=== PATIENT | male | born 1945 | race Caucasian/White ===

== ENCOUNTER 2017-06-23 17:41 | Observation (INO) | payer MEDICARE, BC ==
[~2017-06-23] VITALS: Ht 172.7 cm; Wt 118.3 kg
[2017-06-23 17:45] VITALS: BP 122/88; PULSE 78; RESP 18; TEMP 98.9; O2SAT 89
[2017-06-23 18:06] VITALS: O2SAT 91
[2017-06-23] MEDS ORDERED: SODIUM CHLORIDE 0.9% FLUSH 10 ML FLUSH IVF PRN (18:30)
--- NOTE | 2017-06-23 18:31 | PD ---
HPI Chief Complaint: Cold / Flu Symptoms Time Seen by Provider: 18:11 Travel History International Travel<30 days: No Contact w/Intl Traveler<30days: No Traveled to known affect area: No History of Present Illness HPI 71-year-old male pleasant well-nourished well-developed arrives with cough and fever for about 2 days. He reports one friend with a cough who has been accompanying him and his friends from [place]. Patient reports some soreness in the chest in association with coughing. He reports compliance to Lasix and dietary guidelines and no change in urination lower extremity swelling. A subjective fever is reported as well as a measured fever as high as 102.0. PFSH Past Medical History Cardiovascular Problems: Yes Respiratory: Yes Social History Tobacco Use: Yes Allergies-Medications (Allergen,Severity, Reaction): Coded Allergies: No Known Allergies (Verified Allergy, Unknown, 06/18/03) Review of Systems Except as stated in HPI: all other systems reviewed are Neg Physical Exam Narrative GENERAL: 71-year-old male pleasant well-nourished well-developed Vital Signs Date Time Temp Pulse Resp B/P (MAP) Pulse Ox O2 Delivery O2 Flow Rate FiO2 06/23/17 18:06 91 Nasal Cannula 2.00 06/23/17 17:45 98.9 78 18 122/88 (99) 89 SKIN: Warm and dry. HEAD: Atraumatic. Normocephalic. EYES: Pupils equal and round. No scleral icterus. No injection or drainage. ENT: No nasal bleeding or discharge. Mucous membranes pink and moist. NECK: Trachea midline. No JVD. CARDIOVASCULAR: Regular rhythm. Rate is 78. RESPIRATORY: No significant dyspnea or tachypnea. GASTROINTESTINAL: Abdomen soft, non-tender, nondistended. Hepatic and splenic margins not palpable. MUSCULOSKELETAL: Minimal edema bilateral lower extremities. No asymmetry or induration. NEUROLOGICAL: Awake and alert. No obvious cranial nerve deficits. Motor grossly within normal limits. Five out of 5 muscle strength in the arms and legs. Normal speech. PSYCHIATRIC: Appropriate mood and affect; insight and judgment normal. Data Data Last Documented VS Vital Signs Date Time Temp Pulse Resp B/P (MAP) Pulse Ox O2 Delivery O2 Flow Rate FiO2 06/23/17 18:06 91 Nasal Cannula 2.00 06/23/17 17:45 98.9 78 18 Orders Orders Complete Blood Count With Diff (06/23/17 18:25) Basic Metabolic Panel (Bmp) (06/23/17 18:25) B-Type Natriuretic Peptide (06/23/17 18:25) Iv Access Insert/Monitor (06/23/17 18:25) Electrocardiogram (06/23/17 18:25) Ecg Monitoring (06/23/17 18:25) Oximetry (06/23/17 18:25) Oxygen Administration (06/23/17 18:25) Sodium Chloride 0.9% Flush (Ns Flush) (06/23/17 18:30) Influenzae A/B Antigen (06/23/17 18:25) MDM Medical Decision Making Medical Screen Exam Complete: Yes Emergency Medical Condition: Yes Medical Record Reviewed: Yes Differential Diagnosis Influenza, pneumonia, CHF exacerbation, COPD exacerbation Narrative Course Workup initiated. The patient will be signed out to the oncoming provider at 7 PM with plan to follow-up evaluation and disposition appropriately. Jg Mauro MD Jun 23, 2017 18:30
[2017-06-23 18:36] VITALS: O2SAT 94
[2017-06-23] MEDS ORDERED: OSELTAMIVIR PHOSPHATE 75 MG CAP PO ONE (18:45)
[2017-06-23 19:03] LABS: AUTOMATED NEUTROPHIL # 4.1 TH/MM3 (1.8-7.7); BASOPHIL % 0.6 % (0.0-2.0); EOSINOPHIL # 0.1 TH/MM3 (0-0.4); EOSINOPHIL % 1.1 % (0.0-4.0); HEMATOCRIT 38.7 % (39.0-51.0); HEMOGLOBIN 13.2 GM/DL (13.0-17.0); LYMPH % 8.5 % (9.0-44.0); LYMPHOCYTE # 0.5 TH/MM3 (1.0-4.8); MEAN CELL VOLUME 87.6 FL (80.0-100.0); MEAN CORPUSCULAR HEMOGLOBIN 29.9 PG (27.0-34.0); MEAN CORPUSCULAR HGB CONC 34.1 % (32.0-36.0); MONO % 16.1 % (0.0-8.0); MONOCYTE # 0.9 TH/MM3 (0-0.9); NEUT % 73.7 % (16.0-70.0); PLATELET COUNT 190 TH/MM3 (150-450); RED BLOOD COUNT 4.42 MIL/MM3 (4.50-5.90); RED CELL DISTRIBUTION WIDTH 14.6 % (11.6-17.2); WHITE BLOOD COUNT 5.6 TH/MM3 (4.0-11.0)
--- NOTE | 2017-06-23 19:12 | PD ---
Data Data Last Documented VS Vital Signs Date Time Temp Pulse Resp B/P (MAP) Pulse Ox O2 Delivery O2 Flow Rate FiO2 06/23/17 20:05 72 20 189/84 (119) 93 Nasal Cannula 2.00 06/23/17 17:45 98.9 Orders Orders Complete Blood Count With Diff (06/23/17 18:25) Basic Metabolic Panel (Bmp) (06/23/17 18:25) B-Type Natriuretic Peptide (06/23/17 18:25) Iv Access Insert/Monitor (06/23/17 18:25) Electrocardiogram (06/23/17 18:25) Ecg Monitoring (06/23/17 18:25) Oximetry (06/23/17 18:25) Oxygen Administration (06/23/17 18:25) Sodium Chloride 0.9% Flush (Ns Flush) (06/23/17 18:30) Influenzae A/B Antigen (06/23/17 18:25) Oseltamivir (Tamiflu) (06/23/17 18:45) Chest, Single Ap (06/23/17 19:12) Potassium Chloride Eff (K-Lyte Cl Eff) (06/23/17 20:30) Creatine Kinase (Cpk) (06/23/17 20:36) Ckmb (Isoenzyme) Profile (06/23/17 20:36) Troponin I (06/23/17 20:36) Aspirin Chew (Aspirin Chew) (06/23/17 20:45) Nitroglycerin 2% Oint (Nitroglycerin 2% (06/23/17 20:45) Furosemide Inj (Lasix Inj) (06/23/17 20:45) Admit Order (Ed Use Only) (06/23/17 20:36) CKMB (06/23/17 22:10) CKMB% (06/23/17 22:10) Labs Laboratory Tests Test 06/23/17 18:47 White Blood Count 5.6 TH/MM3 Red Blood Count 4.42 MIL/MM3 Hemoglobin 13.2 GM/DL Hematocrit 38.7 % Mean Corpuscular Volume 87.6 FL Mean Corpuscular Hemoglobin 29.9 PG Mean Corpuscular Hemoglobin Concent 34.1 % Red Cell Distribution Width 14.6 % Platelet Count 190 TH/MM3 Mean Platelet Volume 8.0 FL Neutrophils (%) (Auto) 73.7 % Lymphocytes (%) (Auto) 8.5 % Monocytes (%) (Auto) 16.1 % Eosinophils (%) (Auto) 1.1 % Basophils (%) (Auto) 0.6 % Neutrophils # (Auto) 4.1 TH/MM3 Lymphocytes # (Auto) 0.5 TH/MM3 Monocytes # (Auto) 0.9 TH/MM3 Eosinophils # (Auto) 0.1 TH/MM3 Basophils # (Auto) 0.0 TH/MM3 CBC Comment DIFF FINAL Differential Comment Blood Urea Nitrogen 19 MG/DL Creatinine 1.32 MG/DL Random Glucose 178 MG/DL Calcium Level 8.1 MG/DL Sodium Level 139 MEQ/L Potassium Level 2.8 MEQ/L Chloride Level 103 MEQ/L Carbon Dioxide Level 28.6 MEQ/L Anion Gap 7 MEQ/L Estimat Glomerular Filtration Rate 54 ML/MIN B-Type Natriuretic Peptide 151 PG/ML [facility] Medical Record Reviewed: Yes Supervised Visit with CASPER: No Interpretation(s) Last Impressions Chest X-Ray 06/23/171911 Signed Impressions: Service Date/Time: Friday, June 23, 2017 19:25 - CONCLUSION: 1. Small bilateral pleural effusions with likely associated compressive atelectasis. 2. Cardiac silhouette size is at the upper limits for normal. Chauncey Sloan MD Narrative Course During the course of the patient's emergency department visit, the patient's history, examination, and differential diagnosis were reviewed with the patient. The patient was placed on a property assessment monitor with oximetry and frequent blood pressure monitoring. The patient had IV access obtained and blood work sent for analysis. The patient's case was checked out to me by Dr. Mauro. Please see his complete history and physical. The patient's case was checked out to me at the conclusion of his shift. The patient's initial O2 saturation on room air is 89%. The patient was placed on 2 L nasal cannula O2 and he is now saturating 94%. The patient was initially provided Tamiflu [address] mg [address] Mauro. The patient's laboratory studies were reviewed and remarkable for a white count of 5.6, hemoglobin 13.2, platelets 190 with 73.7 neutrophils, lymphocytes 8.5, monocytes 16.1, basic metabolic profile is remarkable for a potassium of 2.8 which was supplemented orally, BUN 19, creatinine 1.32, glucose 178, calcium 8.1 , BNP is 151, cardiac enzymes within normal limits Radiology studies were reviewed and remarkable for a chest x-ray that shows small bilateral pleural effusions with likely associated compressive atelectasis , cardiac silhouette size at the upper limits of normal. The patient was given Lasix 40 mg IV, aspirin 324 mg p.o. 1, nitroglycerin 1 inch the chest wall. The patient will be admitted to the hospital for diuresis. The patient reports that he does have a history of congestive heart failure. He reports that in April his Lasix was increased from 40-80 mg in the morning. The patient's results were discussed with the patient, including the plan of care. I explained that further testing and/ or monitoring is indicated based on the patient's history, examination, and/ or laboratory findings. Therefore, I recommended admission for additional evaluation. The patient expressed understanding and was agreeable with this plan. The patient was admitted to the hospital in stable condition and sent to a bed under the care of the [facility]. Physician Communication Physician Communication The patient's case including history, pertinent physical examination findings, and laboratory studies were discussed with Dr. Llamas. It was agreed that the patient would be admitted to the [facility] service. Diagnosis Primary Impression: Hypoxemia Additional Impressions: Acute exacerbation of congestive heart failure Qualified Codes: I50.9 - Heart failure, unspecified Fever Qualified Codes: R50.9 - Fever, unspecified Admitting Information Admitting Physician Requests: Tiara Hall MD Jun 23, 2017 19:12
[2017-06-23 19:27] LABS: BICARBONATE 28.6 MEQ/L (21.0-32.0); CALCIUM 8.1 MG/DL (8.5-10.1); CREATININE 1.32 MG/DL (0.60-1.30)
--- NOTE | 2017-06-23 19:40 | RADRPT ---
EXAM DATE/TIME: 06/23/2017 19:25 [facility] COMPARISON: No previous studies available for comparison. INDICATIONS : Short of breath. MEDICAL HISTORY : None. SURGICAL HISTORY : None. ENCOUNTER: Initial ACUITY: 1 day PAIN SCORE: 0/10 LOCATION: Bilateral chest FINDINGS: Portable AP view the chest demonstrates cardiac silhouette size is at the upper limits for normal. Th ere is calcification of the aorta. EKG lines overlie the patient. There is blunting of the costophren ic sulci bilaterally. No pneumothorax is identified. The bones and soft tissues demonstrate no acute finding. CONCLUSION: 1. Small bilateral pleural effusions with likely associated compressive atelectasis. 2. Cardiac silhouette size is at the upper limits for normal. Chauncey Sloan MD on June 23, 2017 at 19:37 Board Certified Radiologist. This report was verified electronically.
[2017-06-23 20:05] VITALS: BP 189/84; PULSE 72; RESP 20; O2SAT 93
[2017-06-23] MEDS ORDERED: POTASSIUM CHLORIDE 25 MEQ EFFERVESCENT TAB PO ONE (20:30)
[2017-06-23] MEDS ORDERED: ASPIRIN 81 MG CHEW TAB CHEW ONE (20:45)
[2017-06-23] MEDS ORDERED: NITROGLYCERIN 2% OINT 1 GM PACKET TOPICAL ONE (20:45)
[2017-06-23] MEDS ORDERED: FUROSEMIDE 40 MG/4 ML VIAL IV PUSH ONE (20:45)
[2017-06-23] MEDS ORDERED: LISI40TA PO (20:50)
[2017-06-23] MEDS ORDERED: ASPI81TA81 (20:51)
[2017-06-23] MEDS ORDERED: DILT-14 PO (20:51)
[2017-06-23] MEDS ORDERED: KLOR20TA3 PO (20:51)
[2017-06-23] MEDS ORDERED: CLON0.1T PO ×2 (20:52→20:56)
[2017-06-23] MEDS ORDERED: PROT40TA PO (20:52)
[2017-06-23] MEDS ORDERED: METO100T PO (20:52)
[2017-06-23] MEDS ORDERED: CITA20TA4 PO (20:53)
[2017-06-23] MEDS ORDERED: GLIM1TAB PO (20:53)
[2017-06-23] MEDS ORDERED: METO-338 PO (20:57)
[2017-06-23] MEDS ORDERED: FURO1TAB61 PO (20:57)
[2017-06-23] MEDS ORDERED: ONDANSETRON HCL 4 MG/2 ML VIAL IVP PRN (21:30)
[2017-06-23] MEDS ORDERED: NALOXONE HCL 0.4 MG/ML AMP IV PUSH PRN (21:30)
[2017-06-23] MEDS ORDERED: LORazepam 2 MG TAB PO PRN (21:30)
[2017-06-23] MEDS ORDERED: MAGNESIUM HYDROXIDE SUSP 30 ML CUP PO PRN (21:30)
[2017-06-23] MEDS ORDERED: FLUMAZENIL 0.5 MG/5 ML VIAL IV PUSH PRN (21:30)
[2017-06-23] MEDS ORDERED: LORazepam 1 MG TAB PO PRN (21:30)
[2017-06-23] MEDS ORDERED: ACETAMINOPHEN 325 MG TAB PO PRN (21:30)
[2017-06-23] MEDS ORDERED: BISACODYL 10 MG SUPP RECTAL PRN (21:30)
[2017-06-23] MEDS ORDERED: LACTULOSE SYRUP 20 GM/30 ML CUP PO PRN (21:30)
[2017-06-23] MEDS ORDERED: LORazepam 2 MG/ML VIAL IV PUSH PRN ×4 (21:30)
[2017-06-23] MEDS ORDERED: SENNOSIDES 8.6 MG TAB PO PRN (21:30)
--- NOTE | 2017-06-23 22:03 | HHI.HP ---
HPI Service [facility] Primary Care Physician Non-Staff Admission Diagnosis New onset CHF, hypokalemia, pleural effusions Diagnoses: Travel History International Travel<30 Days: No Contact w/Intl Traveler <30 Da: No Traveled to Known Affected Are: No History of Present Illness 71-year-old male with a past medical history significant for CHF (no recent echo for comparison), COPD, hypertension, hyperlipidemia and TABITHA presents to the emergency department for evaluation of a fever and fatigue. The patient reports starting Saturday evening he felt lightheaded with increasing shortness of breath and a dry cough. He endorses pleuritic chest pain that is worse with coughing. He states his shortness of breath is unchanged with activity. He has bilateral lower extremity edema which is baseline. He was febrile at home to 102. Vital signs on admission: Temperature 98.9, pulse 78, respirations 18, BP 122/88, pulse ox 89% on room air. Review of Systems Except as stated in HPI: all other systems reviewed are Neg Denies fever or chills Denies blurry vision, otorrhea, rhinorrhea Denies sore throat, positive cough No chest pain, palpitations Positive shortness of breath No abdominal pain Denies constipation/diarrhea/nausea/vomiting Denies muscle pain Denies focal weakness No rashes Past Family Social History Past Medical History CHF COPD Hypertension Hyperlipidemia TABITHA Past Surgical History Bilateral knee replacements Bilateral carpal tunnel release Inguinal hernia repair Reported Medications Reported Meds & Active Scripts Active Reported Lopressor (Metoprolol Tartrate) 100 Mg Tab 100 Mg PO BID Lasix (Furosemide) 80 Mg Tab 80 Mg PO BID Clonidine (Clonidine HCl) 0.1 Mg Tab 0.1 Mg PO BID Citalopram (Citalopram Hydrobromide) 20 Mg Tab 20 Mg PO DAILY Glimepiride 1 Mg Tab 1 Mg PO DAILY Take with breakfast or first main meal Protonix (Pantoprazole Sodium) 40 Mg Tab 40 Mg PO DAILY Klor-Con M20 (Potassium Chloride Microencaps) 20 Meq Tab 20 Meq PO DAILY Tiazac (Diltiazem ER 24 HR) 420 Mg Caper 420 Mg PO DAILY Aspir-81 (Aspirin) 81 Mg Tabdr Lisinopril 40 Mg Tab 40 Mg PO DAILY Allergies: Coded Allergies: No Known Allergies (Verified Allergy, Unknown, 06/23/17) Family History Negative for CAD/DM Social History Denies tobacco. Drinks approximately 5-6 beers daily to weekly. Denies illicit drugs. Physical Exam Vital Signs Vital Signs Date Time Temp Pulse Resp B/P (MAP) Pulse Ox O2 Delivery O2 Flow Rate FiO2 06/23/17 20:05 72 20 189/84 (119) 93 Nasal Cannula 2.00 06/23/17 18:36 94 Nasal Cannula 2.00 06/23/17 18:36 94 Nasal Cannula 2.00 06/23/17 18:06 91 Nasal Cannula 2.00 06/23/17 17:45 98.9 78 18 122/88 (99) 89 Physical Exam GENERAL: Obese, male sitting up in a chair SKIN: No rashes, ecchymoses or lesions. Cool and dry. HEAD: Atraumatic. Normocephalic. No temporal or scalp tenderness. EYES: Pupils equal round and reactive. Extraocular motions intact. No scleral icterus. No injection or drainage. ENT: Nose without bleeding, purulent drainage or septal hematoma. Throat without erythema, tonsillar hypertrophy or exudate. Uvula midline. Airway patent. NECK: Trachea midline. No JVD or lymphadenopathy. Supple, nontender, no meningeal signs. CARDIOVASCULAR: Regular rate and rhythm without murmurs, gallops, or rubs. RESPIRATORY: Bilateral crackles in the bases. GASTROINTESTINAL: Abdomen soft, non-tender, nondistended. No hepato-splenomegaly , or palpable masses. No guarding. MUSCULOSKELETAL: Extremities without clubbing, cyanosis, or edema. No joint tenderness, effusion, or edema noted. No calf tenderness. NEUROLOGICAL: Awake and alert. Cranial nerves II through XII intact. Motor and sensory grossly within normal limits. Normal speech. Laboratory Laboratory Tests Test 06/23/17 18:47 White Blood Count 5.6 Red Blood Count 4.42 Hemoglobin 13.2 Hematocrit 38.7 Mean Corpuscular Volume 87.6 Mean Corpuscular Hemoglobin 29.9 Mean Corpuscular Hemoglobin Concent 34.1 Red Cell Distribution Width 14.6 Platelet Count 190 Mean Platelet Volume 8.0 Neutrophils (%) (Auto) 73.7 Lymphocytes (%) (Auto) 8.5 Monocytes (%) (Auto) 16.1 Eosinophils (%) (Auto) 1.1 Basophils (%) (Auto) 0.6 Neutrophils # (Auto) 4.1 Lymphocytes # (Auto) 0.5 Monocytes # (Auto) 0.9 Eosinophils # (Auto) 0.1 Basophils # (Auto) 0.0 CBC Comment DIFF FINAL Differential Comment Blood Urea Nitrogen 19 Creatinine 1.32 Random Glucose 178 Calcium Level 8.1 Sodium Level 139 Potassium Level 2.8 Chloride Level 103 Carbon Dioxide Level 28.6 Anion Gap 7 Estimat Glomerular Filtration Rate 54 B-Type Natriuretic Peptide 151 Date/Time Source Procedure Growth Status 06/23/17 18:50 Nasal Aspirate Influenza Types A,B Antigen (JASON) - Final NEGATIVE FOR FLU A AND B ANTIGEN.... Complete Result Diagram: 06/23/17184606/23/171846 Caprini VTE Risk Assessment Caprini VTE Risk Assessment: Mod/High Risk (score >= 2) Caprini Risk Assessment Model Point Value = 1 Point Value = 2 Point Value = 3 Point Value = 5 Age 41-60 Minor surgery BMI > 25 kg/m2 Swollen legs Varicose veins or History of unexplained or recurrent spontaneous Oral contraceptives or hormone replacement Sepsis (< 1 month) Serious lung disease, including pneumonia (< 1 month) Abnormal pulmonary function Acute myocardial infarction Congestive heart failure (< 1 month) History of inflammatory bowel disease Medical patient at bed rest Age 61-74 Arthroscopic surgery Major open surgery (> 45 min) Laparoscopic surgery (> 45 min) Malignancy Confined to bed (> 72 hours) Immobilizing plaster cast Central venous access Age >= 75 History of VTE Family history of VTE Factor V Leiden Prothrombin [id number] Lupus anticoagulant Anticardiolipin antibodies Elevated serum homocysteine Heparin-induced thrombocytopenia Other congenital or acquired thrombophilia Stroke (< 1 month) Elective arthroplasty Hip, pelvis, or leg fracture Acute spinal cord injury (< 1 month) Prophylaxis Regimen Total Risk Factor Score Risk Level Prophylaxis Regimen 0-1 Low Early ambulation 2 Moderate Order ONE of the following: *Sequential Compression Device (SCD) *Heparin 5000 units SQ BID 3-4 Higher Order ONE of the following medications: *Heparin 5000 units SQ TID *Enoxaparin/Lovenox 40 mg SQ daily (WT < 150 kg, CrCl > 30 mL/min) *Enoxaparin/Lovenox 30 mg SQ daily (WT < 150 kg, CrCl > 10-29 mL/min) *Enoxaparin/Lovenox 30 mg SQ BID (WT < 150 kg, CrCl > 30 mL/min) AND/OR *Sequential Compression Device (SCD) 5 or more Highest Order ONE of the following medications: *Heparin 5000 units SQ TID (Preferred with Epidurals) *Enoxaparin/Lovenox 40 mg SQ daily (WT < 150 kg, CrCl > 30 mL/min) *Enoxaparin/Lovenox 30 mg SQ daily (WT < 150 kg, CrCl > 10-29 mL/min) *Enoxaparin/Lovenox 30 mg SQ BID (WT < 150 kg, CrCl > 30 mL/min) AND *Sequential Compression Device (SCD) Assessment and Plan Assessment and Plan Assessment/plan: 1. CHF exacerbation ACS rule out pending Chest x-ray significant for small bilateral pleural effusions IV Lasix 2. Viral syndrome Influenza negative however patient started on Tamiflu in the emergency department Continue Tamiflu Supportive care 3. CHF/hypertension/hyperlipidemia Continue home medications 4. COPD/TABITHA Continue home medications Continue home CPAP 5. Hypokalemia Status post repletion in the emergency department Follow-up BMP FEN Heart healthy diet Electrolytes: Monitor and replete when necessary Heparin Kim Llamas MD Jun 23, 2017 22:03
[2017-06-23 22:04] VITALS: BP 182/90; PULSE 73; RESP 16
[2017-06-23] MEDS ORDERED: DILTIAZEM-CD 120 MG CAP ER PO ONE (22:30)
[2017-06-23] MEDS ORDERED: METOPROLOL TARTRATE 100 MG TAB PO ONE (22:30)
[2017-06-23] MEDS ORDERED: cloNIDine HCL 0.1 MG TAB PO ONE (22:30)
[2017-06-23] MEDS ORDERED: HYDR-3801 PO (22:30)
[2017-06-23] MEDS ORDERED: DILTIAZEM-CD 300 MG CAP ER PO ONE (22:30)
[2017-06-23] MEDS ORDERED: ADVA250A INH (22:31)
[2017-06-23] MEDS ORDERED: SPIRCAP INH (22:31)
[2017-06-23 22:53] LABS: TROPONIN I 0.03 NG/ML (0.02-0.05)
[2017-06-23] MEDS: HEPARIN SODIUM - SQ 10,000 UNITS/ML VIAL SQ SCH (23:07)
[2017-06-23 23:15] VITALS: BP 165/81; PULSE 74; RESP 16; O2SAT 98
[2017-06-24] VITALS (9 sets, daily range): BP systolic 134–184; BP diastolic 75–98; PULSE 60–68; RESP 16–20; TEMP 98–99.4; O2SAT 93–99
[2017-06-24] MEDS ORDERED: DILTIAZEM-CD 300 MG CAP ER PO SCH (09:00)
[2017-06-24] MEDS ORDERED: OSELTAMIVIR PHOSPHATE 75 MG CAP PO SCH (09:00)
[2017-06-24] MEDS ORDERED: DILTIAZEM-CD 120 MG CAP ER PO SCH (09:00)
[2017-06-24] MEDS: BUDESONIDE-FORMOTEROL 160/4.5 MCG INHALER INH SCH ×2 (09:19→22:15)
[2017-06-24] MEDS: FUROSEMIDE 40 MG/4 ML VIAL IV PUSH SCH ×2 (09:21→18:22)
[2017-06-24] MEDS: METOPROLOL TARTRATE 100 MG TAB PO SCH ×2 (09:21→22:14)
[2017-06-24] MEDS: DOCUSATE SODIUM 50 MG/SENNA 8.6 MG TAB PO SCH ×2 (09:21→22:15)
[2017-06-24] MEDS: PANTOPRAZOLE SOD 40 MG DELAYED RELEASE TAB PO SCH (09:22)
[2017-06-24] MEDS: CITALOPRAM HYDROBROMIDE 20 MG TAB PO SCH (09:22)
[2017-06-24] MEDS: LISINOPRIL 20 MG TAB PO SCH (09:22)
[2017-06-24] MEDS: POTASSIUM CHLORIDE 20 MEQ CONTROLLED RELEASE TAB PO SCH (09:22)
[2017-06-24] MEDS: hydrALAZINE HCL 100 MG TAB PO SCH ×2 (09:23→22:15)
[2017-06-24] MEDS: cloNIDine HCL 0.1 MG TAB PO SCH ×2 (09:23→22:14)
[2017-06-24] MEDS: SODIUM CHLORIDE 0.9% FLUSH 10 ML FLUSH IV FLUSH SCH ×2 (09:23→22:13)
[2017-06-24] MEDS: HEPARIN SODIUM - SQ 10,000 UNITS/ML VIAL SQ SCH ×3 (09:29→22:15)
[2017-06-24 12:16] LABS: HEMOGLOBIN 14.1 GM/DL (13.0-17.0); MEAN CELL VOLUME 88.4 FL (80.0-100.0); MEAN CORPUSCULAR HEMOGLOBIN 30.4 PG (27.0-34.0); MEAN CORPUSCULAR HGB CONC 34.4 % (32.0-36.0); MEAN PLATELET VOLUME 8.2 FL (7.0-11.0); PLATELET COUNT 202 TH/MM3 (150-450); RED BLOOD COUNT 4.63 MIL/MM3 (4.50-5.90); RED CELL DISTRIBUTION WIDTH 14.7 % (11.6-17.2); WHITE BLOOD COUNT 4.8 TH/MM3 (4.0-11.0)
[2017-06-24 12:17] LABS: AUTOMATED NEUTROPHIL # 3.2 TH/MM3 (1.8-7.7); BASOPHIL % 0.4 % (0.0-2.0); EOSINOPHIL # 0.1 TH/MM3 (0-0.4); EOSINOPHIL % 1.5 % (0.0-4.0); LYMPH % 13.7 % (9.0-44.0); LYMPHOCYTE # 0.7 TH/MM3 (1.0-4.8); MONO % 16.9 % (0.0-8.0); MONOCYTE # 0.8 TH/MM3 (0-0.9); NEUT % 67.5 % (16.0-70.0)
[2017-06-24 12:38] LABS: CALCIUM 8.3 MG/DL (8.5-10.1); CREATININE 1.14 MG/DL (0.60-1.30)
[2017-06-24 12:43] LABS: TROPONIN I 0.04 NG/ML (0.02-0.05)
--- NOTE | 2017-06-24 13:09 | HHI.PR ---
Subjective Remarks Patient reports that there is breath, as well as dry cough continues. Denies any nausea or vomiting. Denies chest pain. Recent plane flight 1 week ago, planned plane flight in 2 days Objective Vital Signs Date Time Temp Pulse Resp B/P (MAP) Pulse Ox O2 Delivery O2 Flow Rate FiO2 06/24/17 12:48 98.8 60 18 141/75 (97) 93 06/24/17 08:23 99.2 66 18 170/84 (112) 93 06/24/17 05:59 95 Nasal Cannula 2.00 06/24/17 05:31 96 40 06/24/17 04:49 99.4 63 20 154/75 (101) 94 06/24/17 03:20 99 40 06/24/17 00:14 98.5 68 20 134/94 (107) 93 06/23/17 23:58 06/23/17 23:15 74 16 165/81 (109) 98 Nasal Cannula 2.00 06/23/17 22:04 73 16 182/90 (120) 06/23/17 20:05 72 20 189/84 (119) 93 Nasal Cannula 2.00 06/23/17 18:36 94 Nasal Cannula 2.00 06/23/17 18:36 94 Nasal Cannula 2.00 06/23/17 18:06 91 Nasal Cannula 2.00 06/23/17 17:45 98.9 78 18 122/88 (99) 89 Result Diagram: 06/24/17 1135 06/24/17 1135 Objective Remarks GENERAL: Patient sitting up in bed. Appears comfortable. SKIN: Warm and dry. HEAD: Normocephalic. EYES: No scleral icterus. No injection or drainage. NECK: Supple, trachea midline. difficult due to body habitus CARDIOVASCULAR: Regular rate and rhythm without murmurs, gallops, or rubs. RESPIRATORY: Breath sounds equal bilaterally. No accessory muscle use. GASTROINTESTINAL: Abdomen soft, non-tender, nondistended. MUSCULOSKELETAL: No cyanosis. BACK: Nontender without obvious deformity. No CVA tenderness. A/P Assessment and Plan // CHF exacerbation ACS rule out pending Chest x-ray significant for small bilateral pleural effusions IV Lasix = Continue IV Lasix. Check echocardiogram. Consult cardiology. Strict intake and output monitoring check CT pulmonary angiogram due to recent plane flight. //Viral syndrome Influenza negative however patient started on Tamiflu in the emergency department Continue Tamiflu Supportive care // CHF/hypertension/hyperlipidemia Continue home medications // COPD/TABITHA Continue home medications Continue home CPAP = We will also treat for COPD exacerbation with IV steroids // Hypokalemia Status post repletion in the emergency department Follow-up BMP = Potassium 2.9. Replace. Continue to monitor. FEN Heart healthy diet Electrolytes: Monitor and replete when necessary Heparin Discharge Planning Pending improvement Eb Gonzales MD Jun 24, 2017 13:09
[2017-06-24] MEDS ORDERED: RESP: IPRATROPIUM 0.5 MG/2.5 ML NEB NEB PRN (13:15)
[2017-06-24] MEDS ORDERED: IOHEXOL 350 MG/ML 10 ML VIAL (for RAD DIAG) IVCONTRAST ONE (13:22)
[2017-06-24] MEDS ORDERED: POTASSIUM CHLORIDE 20 MEQ CONTROLLED RELEASE TAB PO ONE (13:30)
[2017-06-24] MEDS ORDERED: methylPREDNISolone SOD SUCC 125 MG/2 ML VIAL IV PUSH ONE (13:30)
--- NOTE | 2017-06-24 13:51 | RADRPT ---
EXAM DATE/TIME: 06/24/2017 13:12 [facility] COMPARISON: No previous studies available for comparison. INDICATIONS : Shortness of breath, evaluate for embolism IV CONTRAST: 70 cc Omnipaque 350 (iohexol) IV RADIATION DOSE: 23.21 CTDIvol (mGy) MEDICAL HISTORY : Cardiovascular disease. Hypertension. Chronic obstructive pulmonary disease. SURGICAL HISTORY : None. ENCOUNTER: Initial ACUITY: 1 day PAIN SCALE: 5/10 LOCATION: Bilateral chest TECHNIQUE: Volumetric scanning of the chest was performed using a pulmonary embolism protocol MIP images were re constructed. Using automated exposure control and adjustment of the mA and/or kV according to patien t size, radiation dose was kept as low as reasonably achievable to obtain optimal diagnostic quality images. DICOM format image data is available electronically for review and comparison. Follow-up recommendations for detected pulmonary nodules are based at a minimum on nodule size and pa tient risk factors according to Fleischner Society Guidelines. FINDINGS: Breathing motion degraded study. PULMONARY ARTERIES: Mild atelectasis involving the lingula and basilar segments bilaterally. No infiltrate or mass. LUNGS: There is no consolidation or pneumothorax . No concerning pulmonary nodule is visualized. PLEURAE: There is no pleural thickening or pleural effusion. MEDIASTINUM: Moderate cardiomegaly. Atherosclerotic changes involving the aorta and coronary arteries. Tiny medias tinal lymph nodes without adenopathy. MUSCULOSKELETAL: A degenerative thoracic spine. Old trauma involving the right posterior seventh rib. MISCELLANEOUS: The visualized upper abdominal organs demonstrate no acute abnormality. CONCLUSION: 1. Motion degraded study. 2. No CTA evidence to suggest pulmonary emboli. 3. Cardiomegaly. Kyle Porras Jr., MD on June 24, 2017 at 13:23 Board Certified Radiologist. This report was verified electronically.
--- NOTE | 2017-06-24 13:58 | MB ---
cc: POLLY MOSQUEDA M.D. DATE OF CONSULTATION: 06/24/2017 REASON FOR CONSULTATION Congestive heart failure, abnormal EKG. HISTORY OF PRESENT ILLNESS The patient is a 71-year-old white male, visiting from [place], with a history of congestive heart failure diagnosed about 6 years ago, hypertension, COPD, hyperlipidemia, sleep apnea, diabetes, who presented to the hospital mainly with complaints of shortness of breath. For the past several days he has had increasing dyspnea and flu-like symptoms. He reports a nonproductive cough as well as fevers, myalgias, generalized malaise. He denies angina, change in chronic intermittent dependent pedal edema, paroxysmal nocturnal dyspnea, orthopnea, lightheadedness, syncope, near-syncope, palpitations. He reports compliance with his medications and a no added salt diet. Occasionally he has experienced mild wheezing. PAST MEDICAL HISTORY 1. Congestive heart failure which the patient states was diagnosed about 6 years ago. 2. Hypertension. 3. COPD. 4. Hyperlipidemia. 5. Sleep apnea. 6. Diabetes. MEDICATIONS Cardiac medications at home: 1. Metoprolol tartrate 100 mg b.i.d. 2. Furosemide 80 mg b.i.d. 3. Clonidine 0.1 mg b.i.d. 4. Diltiazem 420 mg daily. 5. Aspirin 81 mg daily. 6. Lisinopril 40 mg daily. ALLERGIES NO KNOWN DRUG ALLERGIES. FAMILY HISTORY There is no significant family history of early myocardial infarction. SOCIAL HISTORY The patient quit smoking about 10 years ago. He denies alcohol abuse. REVIEW OF SYSTEMS As in the history of present illness, otherwise negative or noncontributory. He also denies headache, abdominal pain, melena, dyspepsia, bright red blood per rectum, diarrhea. PHYSICAL EXAMINATION VITAL SIGNS: Blood pressure is 122/88 with a pulse of 78, respirations 18. GENERAL: He is a well-developed, well-nourished white male, in no acute distress. HEENT: Jugular venous pressure is hard to assess, it appears to be normal. Carotid pulses are 2+ bilaterally and without bruits. CHEST: Examination of the chest reveals diminished breath sounds at the bases. CARDIAC: On cardiac examination he has a regular rhythm and rate without S3-S4 or murmur. ABDOMEN: On abdominal examination he has a soft, obese, nontender abdomen. Bowel sounds are present. There is no definite hepatosplenomegaly. EXTREMITIES: Examination of the extremities reveals no clubbing or cyanosis. There is trace pretibial edema. Chronic venostasis changes are also evident. EKG From 06/23 at 06:42 p.m. shows sinus rhythm, possible prolonged QT interval, nonspecific ST and T-wave changes. EKG from 06/24/17 shows no change. IMAGING STUDIES Chest x-ray shows small bilateral pleural effusions. LABORATORY DATA Laboratory data includes normal CBC, potassium 2.9, BUN 14, creatinine 1.14, troponin 0.04, CK 152. Brain natriuretic peptide level 151. IMPRESSION Possible congestive heart failure in this 71-year-old white male with a history of hypertension, diabetes, COPD, sleep apnea, congestive heart failure diagnosed 6 years ago, according to the patient. Chest x-ray is not entirely consistent with congestive heart failure. There are small bilateral pleural effusions, but no evidence for pulmonary venous congestion. His brain natriuretic peptide level is only 151. There is no evidence for acute coronary syndrome. EKG changes are nonspecific. Cardiac enzymes are negative for myocardial infarction. He has had no chest pain symptoms. RECOMMENDATIONS 1. Continue his usual comprehensive home cardiac medical regimen. 2. Agree with intravenous Lasix diuresis. 3. Check 2-D echo to assess his left ventricular function. MD KATE Grant/MELLISA /1:02 PM /1:45 PM KARLA
[2017-06-24 19:30] LABS: TROPONIN I 0.03 NG/ML (0.02-0.05)
[2017-06-24] MEDS: DILTIAZEM-CD 120 MG CAP ER PO SCH (22:14)
[2017-06-24] MEDS: DILTIAZEM-CD 300 MG CAP ER PO SCH (22:14)
[2017-06-24] MEDS: methylPREDNISolone SOD SUCC 40 MG/1 ML VIAL IV PUSH SCH (22:14)
--- NOTE | 2017-06-24 22:47 | EKG ---
Date Performed: 06/24/2017 Time Performed: 10:31:49 PTAGE: 71 years EKG: Sinus rhythm WITH FIRST DEGREE AV BLOCK POSSIBLE INFERIOR MYOCARDIAL INFARCTION ABNORMAL ECG PREVIOUS TRACING : 06/24/2017 06.50 DOCTOR: Juliet Nolan Interpretating Date/Time 06/24/2017 22:44:57
--- NOTE | 2017-06-24 22:54 | EKG ---
Date Performed: 06/24/2017 Time Performed: 06:50:25 PTAGE: 71 years EKG: Sinus rhythm WITH FIRST DEGREE AV BLOCK POSSIBLE INFERIOR MYOCARDIAL INFARCTION ABNORMAL ECG PREVIOUS TRACING : 06/23/2017 22.35 DOCTOR: Juliet Nolan Interpretating Date/Time 06/24/2017 22:49:26
--- NOTE | 2017-06-24 22:58 | EKG ---
Date Performed: 06/23/2017 Time Performed: 22:35:34 PTAGE: 71 years EKG: Sinus rhythm POSSIBLE INFERIOR MYOCARDIAL INFARCTION BORDERLINE ECG PREVIOUS TRACING : 06/23/2017 18.42 DOCTOR: Juliet Nolan Interpretating Date/Time 06/24/2017 22:51:18
--- NOTE | 2017-06-24 23:03 | EKG ---
Date Performed: 06/23/2017 Time Performed: 18:42:13 PTAGE: 71 years EKG: Sinus rhythm WITH FIRST DEGREE AV BLOCK POSSIBLE INFERIOR MYOCARDIAL INFARCTION ABNORMAL ECG NO PREVIOUS TRACING DOCTOR: Juliet Nolan Interpretating Date/Time 06/24/2017 22:55:27
[2017-06-25] VITALS (8 sets, daily range): BP systolic 116–187; BP diastolic 77–86; PULSE 58–68; RESP 14–21; TEMP 97.5–98.7; O2SAT 90–98
[2017-06-25] MEDS: methylPREDNISolone SOD SUCC 40 MG/1 ML VIAL IV PUSH SCH ×3 (06:12→22:38)
[2017-06-25] MEDS: SODIUM CHLORIDE 0.9% FLUSH 10 ML FLUSH IV FLUSH PRN (06:13)
[2017-06-25] MEDS: HEPARIN SODIUM - SQ 10,000 UNITS/ML VIAL SQ SCH ×3 (06:13→22:38)
--- NOTE | 2017-06-25 08:30 | PD.CARD.PN ---
Subjective Subjective Remarks No dyspnea, CP, PND, orthopnea, dizziness, palpitations. Objective Medications Item Value Date Time Diltiazem HCl 120 mg 06/24/172099 (Cardizem Cd) HS/PO 06/24/172213 Diltiazem HCl 300 mg 06/24/172099 (Cardizem Cd) HS/PO 06/24/172213 Furosemide 40 mg 06/24/17 0900 (Lasix Inj) BID@/IV PUSH 06/24/171821 Metoprolol 100 mg 06/24/17 0900 Tartrate BID/PO 06/24/172213 (Lopressor) Potassium Chloride 20 meq 06/24/17899 (KCl) DAILY/PO 06/24/17921 Lisinopril 40 mg 06/24/1700 (Prinivil) DAILY/PO 06/24/17921 Clonidine 0.1 mg 06/24/17899 (Catapres) BID/PO 06/24/172213 Current Medications Medications (Trade) Dose Ordered Sig/Katharina Route Start Time Stop Time Status Last Admin (NS Flush) 2 ml UNSCH PRN IVF 06/23/17 18:30 (Lasix Inj) 40 mg BID@ IV PUSH 06/24/17 09:00 06/24/17 18:22 (NS Flush) 2 ml UNSCH PRN IV FLUSH 06/23/17 21:30 06/25/17 06:13 (NS Flush) 2 ml BID IV FLUSH 06/24/17 09:00 06/24/17 22:13 (Tylenol) 650 mg Q4H PRN PO 06/23/17 21:30 (Zofran Inj) 4 mg Q6H PRN IVP 06/23/17 21:30 (Heparin Inj) 5,000 units Q8HR SQ 06/23/17 22:00 06/25/17 06:13 (Narcan Inj) 0.4 mg UNSCH PRN IV PUSH 06/23/17 21:30 (Candie-Colace) 1 tab BID PO 06/24/17 09:00 (Milk Of Magnesia Liq) 30 ml Q12H PRN PO 06/23/17 21:30 (Senokot) 17.2 mg Q12H PRN PO 06/23/17 21:30 (Dulcolax Supp) 10 mg DAILY PRN RECTAL 06/23/17 21:30 (Lactulose Liq) 30 ml DAILY PRN PO 06/23/17 21:30 (Romazicon Inj) 0.2 mg Q1M PRN IV PUSH 06/23/17 21:30 (Ativan) 1 mg Q4H PRN PO 06/23/17 21:30 (Ativan Inj) 1 mg Q4H PRN IV PUSH 06/23/17 21:30 (Ativan) 2 mg Q2H PRN PO 06/23/17 21:30 (Ativan Inj) 2 mg Q2H PRN IV PUSH 06/23/17 21:30 (Ativan Inj) 2 mg Q1H PRN IV PUSH 06/23/17 21:30 (Ativan Inj) 2 mg Q15M PRN IV PUSH 06/23/17 21:30 (CeleXA) 20 mg DAILY PO 06/24/17 09:00 06/24/17 09:22 (Catapres) 0.1 mg BID PO 06/24/17 09:00 06/24/17 22:14 (Lopressor) 100 mg BID PO 06/24/17 09:00 06/24/17 22:14 (Protonix) 40 mg DAILY PO 06/24/17 09:00 06/24/17 09:22 (KCl) 20 meq DAILY PO 06/24/17 09:00 06/24/17 09:22 (Prinivil) 40 mg DAILY PO 06/24/17 09:00 06/24/17 09:22 (Cardizem Cd) 120 mg HS PO 06/24/17 21:00 06/24/17 22:14 (Cardizem Cd) 300 mg HS PO 06/24/17 21:00 06/24/17 22:14 (Apresoline) 50 mg BID PO 06/24/17 09:00 06/24/17 22:15 (Symbicort 160-4.5 Mcg Inh) 2 puff BID INH 06/24/17 09:00 06/24/17 09:19 (SoluMEDROL INJ) 40 mg Q8HR IV PUSH 06/24/17 22:00 06/25/17 06:12 (Atrovent Neb) 0.5 mg Q4HR NEB PRN NEB 06/24/17 13:15 Vital Signs / I&O Vital Signs Date Time Temp Pulse Resp B/P (MAP) Pulse Ox O2 Delivery O2 Flow Rate FiO2 06/25/17 04:11 98 40 06/25/17 04:09 98.7 58 18 153/77 (102) 93 06/25/17 00:56 98 40 06/24/17 21:30 98.0 65 16 168/98 (121) 98 06/24/17 20:50 Nasal Cannula 2.00 06/24/17 16:56 98.6 61 18 184/97 (126) 96 06/24/17 12:48 98.8 60 18 141/75 (97) 93 Physical Exam GENERAL: Well developed, well nourished. No acute distress. HEENT: Jugular venous pressure is normal. CHEST: Lungs clear to auscultation bilaterally. Unlabored respiratory effort. CARDIAC: Regular rate and rhythm without S3, S4, or murmur. ABDOMEN: Soft, nontender, no hepatosplenomegaly. Bowel sounds present. EXTREMITIES: No clubbing, cyanosis. Trace left pretibial edema. Chronic venous stasis changes. Laboratory Laboratory Tests Test 06/24/17 11:35 06/24/17 18:20 White Blood Count 4.8 TH/MM3 Red Blood Count 4.63 MIL/MM3 Hemoglobin 14.1 GM/DL Hematocrit 41.0 % Mean Corpuscular Volume 88.4 FL Mean Corpuscular Hemoglobin 30.4 PG Mean Corpuscular Hemoglobin Concent 34.4 % Red Cell Distribution Width 14.7 % Platelet Count 202 TH/MM3 Mean Platelet Volume 8.2 FL Neutrophils (%) (Auto) 67.5 % Lymphocytes (%) (Auto) 13.7 % Monocytes (%) (Auto) 16.9 % Eosinophils (%) (Auto) 1.5 % Basophils (%) (Auto) 0.4 % Neutrophils # (Auto) 3.2 TH/MM3 Lymphocytes # (Auto) 0.7 TH/MM3 Monocytes # (Auto) 0.8 TH/MM3 Eosinophils # (Auto) 0.1 TH/MM3 Basophils # (Auto) 0.0 TH/MM3 CBC Comment DIFF FINAL Differential Comment Blood Urea Nitrogen 14 MG/DL Creatinine 1.14 MG/DL Random Glucose 138 MG/DL Calcium Level 8.3 MG/DL Sodium Level 139 MEQ/L Potassium Level 2.9 MEQ/L Chloride Level 102 MEQ/L Carbon Dioxide Level 30.0 MEQ/L Anion Gap 7 MEQ/L Estimat Glomerular Filtration Rate 64 ML/MIN Magnesium Level 2.0 MG/DL Total Creatine Kinase 152 U/L 158 U/L Troponin I 0.04 NG/ML 0.03 NG/ML Assessment and Plan Problem List: (1) Congestive heart failure (CHF) ICD Codes: I50.9 - Heart failure, unspecified Status: Acute Plan: Stable overnight. Dyspnea resolved. Echo pending. No evidence for ACS. 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 Rec increase clonidine dosing. Code Status full code Discussed Condition With patient Problem Qualifiers (1) Congestive heart failure (CHF): Qualified Codes: I50.9 - Heart failure, unspecified (2) Hypertension: Qualified Codes: I10 - Essential (primary) hypertension Carmelo Cherry MD Jun 25, 2017 08:30
--- NOTE | 2017-06-25 08:32 | HHI.PR ---
Subjective Remarks Follow-up CHF exacerbation. The patient states that he feels much better. Shortness of breath has improved. He is only requiring the oxygen intermittently. No chest pain. Cough is productive. Objective Vitals Vital Signs Date Time Temp Pulse Resp B/P (MAP) Pulse Ox O2 Delivery O2 Flow Rate FiO2 06/25/17 04:11 98 40 06/25/17 04:09 98.7 58 18 153/77 (102) 93 06/25/17 00:56 98 40 06/24/17 21:30 98.0 65 16 168/98 (121) 98 06/24/17 20:50 Nasal Cannula 2.00 06/24/17 16:56 98.6 61 18 184/97 (126) 96 06/24/17 12:48 98.8 60 18 141/75 (97) 93 06/24/17 08:23 99.2 66 18 170/84 (112) 93 Result Diagram: 06/24/17 1135 06/24/[address] Angiography 06/24/17 0000 Signed Impressions: Service Date/Time: Saturday, June 24, 2017 13:12 - CONCLUSION: 1. Motion degraded study. 2. No CTA evidence to suggest pulmonary emboli. 3. Cardiomegaly. Kyle Porras Jr., MD Chest X-Ray 06/23/17 191 Signed Impressions: Service Date/Time: Friday, June 23, 2017 19:25 - CONCLUSION: 1. Small bilateral pleural effusions with likely associated compressive atelectasis. 2. Cardiac silhouette size is at the upper limits for normal. Chauncey Sloan MD Objective Remarks General: Obese male in no acute distress. Heart: Regular rate and rhythm. No murmur. Lungs: Clear to auscultation bilaterally. No wheezes, rales, or rhonchi. Breathing is nonlabored. Abdomen: Soft, nontender, nondistended. Extremities: No lower extremity edema. Psych: Alert and oriented. Skin: Chronic venous stasis changes of both lower legs. Procedures None Urinary Catheter: No Vascular Central Line Catheter: No A/P Assessment and Plan 1. Acute exacerbation of chronic systolic congestive heart failure: ACS ruled out with serial cardiac enzymes. Appreciate cardiology recommendations. Discussed with Dr. Cherry. Continue diuresis. Strict intake/output monitoring. Echocardiogram pending. 2. Dyspnea: Secondary to above. Patient also has a viral syndrome. He received 1 dose of Tamiflu, however influenza testing was negative. Cough is productive. CTA negative for pulmonary embolus. 3. COPD: Continue steroids. Oxygen as needed. Continue bronchodilators. Restart Spiriva. 4. Hypokalemia: Continue potassium supplementation. Labs are pending this morning. 5. Obstructive sleep apnea: Continue CPAP at night. 6. Hypertension: Continue clonidine, hydralazine, Lopressor, diltiazem, Lasix, lisinopril. 7. DVT prophylaxis: Heparin. Discharge Planning Pending labs and cardiology clearance. Pete Jarvis MD Jun 25, 2017 08:32
[2017-06-25] MEDS: BUDESONIDE-FORMOTEROL 160/4.5 MCG INHALER INH SCH ×2 (09:25→22:38)
[2017-06-25] MEDS: POTASSIUM CHLORIDE 20 MEQ CONTROLLED RELEASE TAB PO SCH (09:26)
[2017-06-25] MEDS: CITALOPRAM HYDROBROMIDE 20 MG TAB PO SCH (09:26)
[2017-06-25] MEDS: PANTOPRAZOLE SOD 40 MG DELAYED RELEASE TAB PO SCH (09:26)
[2017-06-25] MEDS: SODIUM CHLORIDE 0.9% FLUSH 10 ML FLUSH IV FLUSH SCH ×2 (09:27→22:39)
[2017-06-25] MEDS: FUROSEMIDE 40 MG/4 ML VIAL IV PUSH SCH ×2 (09:27→18:46)
[2017-06-25] MEDS: DOCUSATE SODIUM 50 MG/SENNA 8.6 MG TAB PO SCH ×2 (09:27→22:38)
[2017-06-25 10:07] LABS: BICARBONATE 27.3 MEQ/L (21.0-32.0); CREATININE 1.12 MG/DL (0.60-1.30)
[2017-06-25] MEDS: TIOTROPIUM BROMIDE 18 MCG INH INH SCH (11:05)
[2017-06-25] MEDS: METOPROLOL TARTRATE 100 MG TAB PO SCH ×2 (12:15→22:37)
[2017-06-25] MEDS: cloNIDine HCL 0.1 MG TAB PO SCH ×2 (12:15→22:37)
[2017-06-25] MEDS: LISINOPRIL 20 MG TAB PO SCH (12:16)
[2017-06-25] MEDS: hydrALAZINE HCL 100 MG TAB PO SCH ×2 (12:16→22:37)
[2017-06-25] MEDS ORDERED: POTASSIUM CHLORIDE 10 MEQ CONTROLLED RELEASE TAB PO ONE (13:00)
[2017-06-25] MEDS ORDERED: PRED5PAK PO (15:20)
--- NOTE | 2017-06-25 15:22 | HHI.DCPOC ---
Discharge Care Plan Diagnosis: (1) Chronic systolic CHF (congestive heart failure) (2) Hypertension (3) Acute exacerbation of congestive heart failure Goals to Promote Your Health * To prevent worsening of your condition and complications * To maintain your health at the optimal level Directions to Meet Your Goals Take your medications as prescribed Follow your dietary instruction Follow activity as directed Keep your appointments as scheduled Take your immunizations and boosters as scheduled If your symptoms worsen call your PCP, if no PCP go to Urgent Care Center or Emergency Room Smoking is Dangerous to Your Health. Avoid second hand smoke Call the 24-hour hour crisis hotline for domestic abuse at Pete aJrvis MD Jun 25, 2017 15:22
--- NOTE | 2017-06-25 20:01 | ECHRPT ---
Indication: HEART FAILURE CONCLUSIONS In limited views the left ventricular systolic function is normal with an estimated ejection fractio n in the range of 55-60%. There is mild to moderate LVH noted Doppler parameters are consistent with impaired left ventricular relaxtion (grade 1 diastolic dysfun ction). [id number] mitral valve regurgitation. There is mild tricuspid valve regurgitation. BP: 170 / 84 HR: 66 Rhythm: Sinus MEASUREMENTS (Male / Female) Normal Values Technical Quality:Technically difficult study 2D ECHO LV Diastolic Diameter PLAX 4.0 cm 4.2 - 5.9 / 3.9 - 5.3 cm LV Systolic Diameter PLAX 3.2 cm IVS Diastolic Thickness 1.7 cm 0.6 - 1.0 / 0.6 - 0.9 cm LVPW Diastolic Thickness 1.7 cm 0.6 - 1.0 / 0.6 - 0.9 cm LV Relative Wall Thickness 0.9 LVOT Diameter 2.4 cm Aortic Root Diameter 3.8 cm LA Systolic Diameter LX 4.1 cm 3.0 - 4.0 / 2.7 - 3.8 cm DOPPLER AV Peak Velocity 199.0 cm/s AV Peak Gradient 15.8 mmHg AV Mean Gradient 8.0 mmHg AV Velocity Time Integral 43.7 cm LVOT Peak Velocity 125.0 cm/s LVOT Peak Gradient 6.3 mmHg LVOT Velocity Time Integral 23.8 cm AV Area Cont Eq vti 2.5 cm AV Area Cont Eq pk 2.8 cm Mitral E Point Velocity 79.5 cm/s Mitral A Point Velocity 90.5 cm/s Mitral E to A Ratio 0.9 LV E' Lateral Velocity 8.7 cm/s Mitral E to LV E' Lateral Ratio 9.2 LV E' Septal Velocity 4.2 cm/s Mitral E to LV E' Septal Ratio 19.0 TR Peak Velocity 380.0 cm/s TR Peak Gradient 57.8 mmHg Right Atrial Pressure 10.0 mmHg Pulmonary Artery Systolic Pressu 67.8 mmHg Right Ventricular Systolic Press 67.8 mmHg PV Peak Velocity 94.7 cm/s PV Peak Gradient 3.6 mmHg FINDINGS LEFT VENTRICLE Normal left ventricular size. In limited views the left ventricular systolic function is normal with an estimated ejection fractio n in the range of 55-60%. There is mild to moderate LVH noted Doppler parameters are consistent with impaired left ventricular relaxtion (grade 1 diastolic dysfun ction). RIGHT VENTRICLE Grossly normal LEFT ATRIUM The left atrial size is moderately dilated. RIGHT ATRIUM The right atrial size is mildly dilated. ATRIAL SEPTUM No atrial level shunt is demonstrated by color flow Doppler interrogation. AORTA The aortic root and proximal ascending aorta are not well visualized. MITRAL VALVE Grossly normal [id number] mitral valve regurgitation. AORTIC VALVE The aortic valve is not well visualized. No aortic valve stenosis. No aortic valve regurgitation. TRICUSPID VALVE Grossly normal There is mild tricuspid valve regurgitation. The estimated pulmonary arterial pressure is 67.8 mmHg. PULMONARY VALVE No pulmonary valve regurgitation or stenosis. VESSELS The inferior vena cava is normal in size. PERICARDIUM No pericardial effusion. Emerson Mauro DO (Electronically Signed) Final Date:25 June 2017 20:00
[2017-06-25] MEDS: DILTIAZEM-CD 120 MG CAP ER PO SCH (22:37)
[2017-06-25] MEDS: DILTIAZEM-CD 300 MG CAP ER PO SCH (22:38)
[2017-06-26] VITALS: BP_SYST 110; BP_SYST 184; BP_DIAS 67; BP_DIAS 94; PULSE 61; RESP 20; TEMP 98.2; O2SAT 94; O2SAT 99
[2017-06-26 01:31] VITALS: O2SAT 98
[2017-06-26 05:32] VITALS: BP 170/79; PULSE 54; RESP 14; TEMP 98.8; O2SAT 98
[2017-06-26] MEDS: methylPREDNISolone SOD SUCC 40 MG/1 ML VIAL IV PUSH SCH (05:53)
[2017-06-26] MEDS: SODIUM CHLORIDE 0.9% FLUSH 10 ML FLUSH IV FLUSH PRN (05:53)
[2017-06-26] MEDS: HEPARIN SODIUM - SQ 10,000 UNITS/ML VIAL SQ SCH (05:54)
[2017-06-26 07:42] LABS: BICARBONATE 28.4 MEQ/L (21.0-32.0); CALCIUM 8.9 MG/DL (8.5-10.1); CREATININE 1.21 MG/DL (0.60-1.30); MAGNESIUM 2.2 MG/DL (1.5-2.5)
[2017-06-26 07:52] VITALS: BP 149/77; PULSE 56; RESP 20; TEMP 97.4; O2SAT 96
--- NOTE | 2017-06-26 08:41 | HHI.DS ---
Discharge Summary Admission Date Jun 23, 2017 at 20:40 Discharge Date: Jun 26, 2017 Admitting Diagnosis New onset CHF, hypokalemia, pleural effusions (1) Diastolic CHF, acute on chronic ICD Code: I50.33 - Acute on chronic diastolic (congestive) heart failure (2) Acute exacerbation of congestive heart failure ICD Code: I50.9 - Heart failure, unspecified Status: Acute (3) Hypertension ICD Code: I10 - Essential (primary) hypertension Status: Chronic (4) Hypoxemia ICD Code: R09.02 - Hypoxemia Status: Acute Procedures None Brief History - From Admission 71-year-old male with a past medical history significant for CHF (no recent echo for comparison), COPD, hypertension, hyperlipidemia and TABITHA presents to the emergency department for evaluation of a fever and fatigue. The patient reports starting Saturday evening he felt lightheaded with increasing shortness of breath and a dry cough. He endorses pleuritic chest pain that is worse with coughing. He states his shortness of breath is unchanged with activity. He has bilateral lower extremity edema which is baseline. He was febrile at home to 102. Vital signs on admission: Temperature 98.9, pulse 78, respirations 18, BP 122/88, pulse ox 89% on room air. CBC/BMP: 06/24/17 1135 06/26/17 0618 Significant Findings Laboratory Tests Test 06/23/17 18:47 06/23/17 22:10 06/24/17 11:35 06/24/17 18:20 Red Blood Count 4.42 MIL/MM3 (4.50-5.90) Hematocrit 38.7 % (39.0-51.0) Neutrophils (%) (Auto) 73.7 % (16.0-70.0) Lymphocytes (%) (Auto) 8.5 % (9.0-44.0) Monocytes (%) (Auto) 16.1 % (0.0-8.0) 16.9 % (0.0-8.0) Lymphocytes # (Auto) 0.5 TH/MM3 (1.0-4.8) 0.7 TH/MM3 (1.0-4.8) Blood Urea Nitrogen 19 MG/DL (7-18) Creatinine 1.32 MG/DL (0.60-1.30) Random Glucose 178 MG/DL (74-106) 138 MG/DL (74-106) Calcium Level 8.1 MG/DL (8.5-10.1) 8.3 MG/DL (8.5-10.1) Potassium Level 2.8 MEQ/L (3.5-5.1) 2.9 MEQ/L (3.5-5.1) Estimat Glomerular Filtration Rate 54 ML/MIN (>89) 64 ML/MIN (>89) B-Type Natriuretic Peptide 151 PG/ML (0-100) Test 06/25/17 08:50 06/26/17 06:18 Blood Urea Nitrogen 20 MG/DL (7-18) 26 MG/DL (7-18) Random Glucose 189 MG/DL (74-106) 248 MG/DL (74-106) Potassium Level 3.4 MEQ/L (3.5-5.1) Estimat Glomerular Filtration Rate 65 ML/MIN (>89) 59 ML/MIN (>89) Imaging Last Impressions CT Angiography 06/24/17 0000 Signed Impressions: Service Date/Time: Saturday, June 24, 2017 13:12 - CONCLUSION: 1. Motion degraded study. 2. No CTA evidence to suggest pulmonary emboli. 3. Cardiomegaly. Kyle Porras Jr., MD Chest X-Ray 06/23/17 1912 Signed Impressions: Service Date/Time: Friday, June 23, 2017 19:25 - CONCLUSION: 1. Small bilateral pleural effusions with likely associated compressive atelectasis. 2. Cardiac silhouette size is at the upper limits for normal. Chauncey Sloan MD PE at Discharge General: Obese male in no acute distress. Sitting up in a chair. Stable on room air. Heart: Regular rate and rhythm. No murmur. Lungs: Clear to auscultation bilaterally. No wheezes, rales, or rhonchi. Breathing is nonlabored. Abdomen: Soft, nontender, nondistended. Extremities: 1+ bilateral lower extremity edema. Psych: Alert and oriented. Skin: Chronic venous stasis changes of both lower legs. Pt update on day of discharge Patient has no complaints at this time. Denies chest pain or dyspnea. He wants to go home. He is not requiring oxygen this morning. Hospital Course The patient was admitted for management of CHF exacerbation. ACS was ruled out with serial cardiac enzymes. Cardiology was consulted. Echocardiogram showed diastolic dysfunction. Patient was noted to have hypokalemia and potassium was supplemented. He was continued on diuresis. He was cleared for discharge by cardiology. He was felt to be stable for discharge home. His blood pressure was elevated during the hospitalization. He was continued on multiple antihypertensive medications. He was advised to follow-up with his [facility] physician and his public health assistant for further management of hypertension and CHF. Pt Condition on Discharge: Stable Discharge Disposition: Discharge Home Discharge Time: <= 30 minutes Discharge Instructions DIET: Follow Instructions for: Heart Healthy Diet Activities you can perform: Regular-No Restrictions Follow up Referrals: Cardiology - 2 Weeks PCP Follow-up - 2 Weeks New Medications: Prednisone (21) 5 mg tab Dose Pack (Prednisone (21) 5 mg tab Dose Pack) 5 Mg Dspk 5 MG PO DIRECTED for Inflammation, #1 DSPK 0 Refills Continued Medications: Aspirin DR (Aspir-81) 81 Mg Tabdr Citalopram (Citalopram) 20 Mg Tab 20 MG PO DAILY for Control Depression, #30 TAB 0 Refills Clonidine (Clonidine) 0.1 Mg Tab 0.1 MG PO BID for Blood Pressure Management, #60 TAB 0 Refills Diltiazem ER 24 HR (Tiazac) 420 Mg Caper 420 MG PO DAILY, #30 CAP 0 Refills Fluticasone-Salmeterol Inh (Advair Diskus Inh) 250-50 Mcg/Blist Aer 1 PUFF INH BID, #1 INHALER 0 Refills Rinse mouth after use. Furosemide (Lasix) 80 Mg Tab 80 MG PO BID, #60 TAB 0 Refills Glimepiride (Glimepiride) 1 Mg Tab 1 MG PO DAILY for Blood Sugar Management, #30 TAB 0 Refills Take with breakfast or first main meal Hydralazine (Hydralazine) 100 Mg Tab 50 MG PO BID for Blood Pressure Management, TAB 0 Refills Take with meals Lisinopril (Lisinopril) 40 Mg Tab 40 MG PO DAILY for Blood Pressure Management, #30 TAB 0 Refills Metoprolol Tartrate (Lopressor) 100 Mg Tab 100 MG PO BID, #60 TAB 0 Refills Pantoprazole (Protonix) 40 Mg Tab 40 MG PO DAILY for Reflux, #30 TAB 0 Refills Potassium Chloride Microencaps (Klor-Con M20) 20 Meq Tab 20 MEQ PO DAILY for Electrolyte Replacement, #30 TAB 0 Refills Tiotropium Inh (Spiriva Handihaler) 18 Mcg Cap 18 MCG INH DAILY for COPD, #30 CAP 0 Refills 1 capsule = 18 mcg Pete Jarvis MD Jun 26, 2017 08:41
[2017-06-26] MEDS: hydrALAZINE HCL 100 MG TAB PO SCH (09:02)
[2017-06-26] MEDS: POTASSIUM CHLORIDE 20 MEQ CONTROLLED RELEASE TAB PO SCH (09:03)
[2017-06-26] MEDS: PANTOPRAZOLE SOD 40 MG DELAYED RELEASE TAB PO SCH (09:03)
[2017-06-26] MEDS: LISINOPRIL 20 MG TAB PO SCH (09:03)
[2017-06-26] MEDS: DOCUSATE SODIUM 50 MG/SENNA 8.6 MG TAB PO SCH (09:03)
[2017-06-26] MEDS: METOPROLOL TARTRATE 100 MG TAB PO SCH (09:03)
[2017-06-26] MEDS: CITALOPRAM HYDROBROMIDE 20 MG TAB PO SCH (09:03)
[2017-06-26] MEDS: cloNIDine HCL 0.1 MG TAB PO SCH (09:03)
[2017-06-26] MEDS: SODIUM CHLORIDE 0.9% FLUSH 10 ML FLUSH IV FLUSH SCH (09:04)
[2017-06-26] MEDS: BUDESONIDE-FORMOTEROL 160/4.5 MCG INHALER INH SCH (09:04)
[2017-06-26] MEDS: TIOTROPIUM BROMIDE 18 MCG INH INH SCH (09:04)
[2017-06-26] MEDS: FUROSEMIDE 40 MG/4 ML VIAL IV PUSH SCH (09:04)
== END 2017-06-26 11:29 | disposition home or self-care (01) ==
LOC: NEPC 17:41 → INTOOBSV 20:40 → NEDA 20:40 → NEPFCDU 23:51
PROVIDERS: ADMIT Family Medicine; ATTEND Family Medicine
DX: I11.0 Hypertensive heart disease with heart failure (principal); I50.43 Acute on chronic combined systolic (congestive) and diastolic (congestive) heart failure; B34.9 Viral infection, unspecified; J44.1 Chronic obstructive pulmonary disease with (acute) exacerbation; E78.5 Hyperlipidemia, unspecified; R09.02 Hypoxemia; I44.0 Atrioventricular block, first degree; R94.31 Abnormal electrocardiogram [ECG] [EKG]; E11.9 Type 2 diabetes mellitus without complications; G47.33 Obstructive sleep apnea (adult) (pediatric); E87.6 Hypokalemia; Z79.899 Other long term (current) drug therapy; Z79.82 Long term (current) use of aspirin; Z79.84 Long term (current) use of oral hypoglycemic drugs; Z96.653 Presence of artificial knee joint, bilateral
CPT/HCPCS: 71045; 71275; 80048; 82550; 82552; 83735; 83880; 84484; 85025; 87804; 93005; 93306; 94002; 94003; 96372; 96374; 96375; 96376; 99285; G0378; J1644; J1940; J2920; J2930; Q9967